=== PATIENT | male | born 1940 | race African-American/Black ===

== ENCOUNTER 2022-01-26 21:53 | Emergency (ER) | payer OTHER ==
[~2022-01-26] VITALS: Ht 182.9 cm; Wt 71.3 kg
[2022-01-26] MEDS ORDERED: ASPIRIN 81MG TABLET PO ONE (23:15)
[2022-01-26] MEDS ORDERED: IOHEXOL-350 100 ML BOTTLE ONE (23:43)
[2022-01-27 00:01] LABS: CHLORIDE 110 mEq/L (98-107)
[2022-01-27 00:04] LABS: BASOPHILS % 0.7 % (0.0-2.0); EOSINOPHILS % 1.7 % (0.0-5.0); HEMATOCRIT. 30.5 % (42.0-52.0); HEMOGLOBIN. 10.1 g/dL (14.0-18.0); LYMPHOCYTES % 17.8 % (20.0-50.0); MEAN CORPUSCULAR HEMOGLOBIN 32.1 pg (28.0-32.0); MEAN CORPUSCULAR VOLUME 96.7 fL (80.0-94.0); MEAN PLATELET VOLUME 7.7 fl (7.4-10.4); MONOCYTES % 9.8 % (2.0-8.0); PLATELET 194 x1000/uL (130-400); RED BLOOD CELL COUNT 3.15 mill/uL (4.7-6.1); RED CELL DISTRIBUTION WIDTH 14.1 % (11.6-14.6)
[2022-01-27 00:13] LABS: ETHANOL BLOOD < 10 mg/dL
[2022-01-27] MEDS ORDERED: KETOROLAC 15MG/ML VIAL * ONE (02:00)
[2022-01-27] MEDS ORDERED: ASPIRIN 81MG TABLET PO ONE (02:30)
[2022-01-27 03:11] VITALS: BP 163/68
[2022-01-27 03:11] LABS: CLARITY URINE CLEAR (CLEAR); COLOR URINE YELLOW (YELLOW); KETONES URINE TRACE (NEGATIVE); LEUKOCYTE ESTERASE URINE NEGATIVE (NEGATIVE); NITRITE URINE NEGATIVE (NEGATIVE); OCCULT BLOOD URINE NEGATIVE (NEGATIVE); PROTEIN URINE NEGATIVE (NEGATIVE); SPECIFIC GRAVITY URINE 1.069 (1.005-1.030); UROBILINOGEN URINE 0.2 E.U./dL (0.2-1.0)
[2022-01-27 03:21] LABS: *AMPHETAMINES SCREEN URINE NEGATIVE (NEGATIVE); *BARBITURATES SCREEN URINE NEGATIVE (NEGATIVE); *BENZODIAZEPINES SCREEN URINE NEGATIVE (NEGATIVE); *COCAINE SCREEN URINE NEGATIVE (NEGATIVE); CANNABINOID URINE SCREEN NEGATIVE (NEGATIVE); METHADONE URINE SCREEN NEGATIVE (NEGATIVE); OPIATES URINE SCREEN NEGATIVE (NEGATIVE); PHENCYCLIDINE URINE SCREEN NEGATIVE (NEGATIVE)
== END 2022-01-27 03:29 | disposition short-term general hospital (02) ==
LOC: ER 21:53
DX: I69.314 Frontal lobe and executive function deficit following cerebral infarction (principal); H51.0 Palsy (spasm) of conjugate gaze; I48.91 Unspecified atrial fibrillation; R94.31 Abnormal electrocardiogram [ECG] [EKG]
CPT/HCPCS: 36415; 70450; 70496; 70498; 71045; 71250; 80053; 80305; 80320; 81003; 82962; 84484; 85025; 93005; 99285; J1885; Q9967; G0480